=== PATIENT | male | born 1960 | race Two or more races ===

== ENCOUNTER → 2018-05-07 | Outpatient (CLI) | payer OTHER ==
[~2018-05-07] MED LIST: ALTACE10 MG; AVELOX ABC PAC400 MG; CIALIS5 MG; CLARINEX-D 21 BOTTLE; HYZAAR 100-121 UDTAB; LIPITOR20 MG
== END | disposition home or self-care (01) ==
LOC: SONOGRAMA 12:45
DX: M72.2 Plantar fascial fibromatosis (principal)

== ENCOUNTER 2022-04-19 07:45 | Day surgery (SDC) | payer OTHER ==
[~2022-04-19 07:45] MED LIST changes: +CARDURA PO; +DESCOVY 200-251 EACH PO; +FOLIC A PO; +LOSARTAN-HCTZ1 EAC2 PO; +MEDROL PO; +METHO PO; +TIVICAY50 MG PO; +TOPROL XL100 M1 PO
== END 2022-04-19 15:15 | disposition home or self-care (01) ==
LOC: CIR.AMB 07:45
PROVIDERS: ATTEND Orthopaedic Surgery
DX: M75.121 Complete rotator cuff tear or rupture of right shoulder, not specified as traumatic (principal); Z20.822 Contact with and (suspected) exposure to COVID-19; I10 Essential (primary) hypertension; E78.00 Pure hypercholesterolemia, unspecified; Z86.16 Personal history of COVID-19; M24.111 Other articular cartilage disorders, right shoulder